=== PATIENT | female | born 1985 | race Caucasian/White ===

== ENCOUNTER 2017-11-22 19:02 | Emergency (ER) | payer MEDICAID, SELFPAY ==
[2017-11-22 19:03] VITALS: BP 129/70; PULSE 96; RESP 17; TEMP 37.6; O2SAT 97; BMI 23.3
--- NOTE | 2017-11-22 19:43 | ED.DCSUM_ITS ---
- ER Visit Summary Date of Service: 11/22/17 Chief Complaint: Abdominal cramping History of Present Illness: The patient is a 31 F G5, currently 16 weeks complicated by placenta previa who presents for abdominal pain and cramping since yesterday evening. Patient began having left lower abdominal cramping radiating into the right lower abdomen yesterday with eventual resolution. This morning it returned and has been intermittent all day. She has associated nausea but no vomiting. Denies diarrhea or constipation but did have one loose stool this morning. No fever, chest pain, shortness of breath. No urinary symptoms. No vaginal bleeding or discharge. Patient has known placenta previa and is scheduled for another ultrasound in December. She does not smoke. No other medical history. She takes vitamins. Physical Examination: Vital signs: afebrile, hemodynamically stable, temperature 99.7, no hypoxia on room air General: well nourished, well developed, in no distress Skin: warm, dry, no rash, no pallor HEENT: normocephalic and atraumatic; PERRL, EOMI, moist mucous membranes Cardiovascular: regular rate and rhythm without murmurs, no peripheral edema, 2 + pulses all distal extremities Respiratory: No increased work of breathing, lungs are clear to auscultation bilaterally, no rales, rhonchi or wheezing Abdominal: Abdomen is soft, mild left lower quadrant tenderness with normoactive bowel sounds, palpable gravid uterus, no guarding or rebound, no masses MSK: Moves all extremities, no deformities, normal strength Neuro: Awake and alert, oriented ?4. No facial droop, sensation and motor function intact and symmetric Test Results: Abnormal Lab Results 11/22/17 11/22/17 11/22/17 19:47 19:47 19:53 WBC 11.4 H RBC 4.04 L Hgb 12.4 Hct 36.1 L MCV 89.4 MCH 30.7 MCHC 34.3 RDW 13.0 RDW Differential 42.3 Plt Count 296 MPV 9.4 Immature Gran % (Auto) 0.000 Neut % (Auto) 66.4 Lymph % (Auto) 28.5 [place] % (Auto) 3.8 Eos % (Auto) 1.1 Baso % (Auto) 0.2 Absolute Neuts (auto) 7.6 Absolute Lymphs (auto) 3.26 Total Counted Not Reportable Sodium 138 Potassium 3.7 Chloride 106 Carbon Dioxide 25.0 Anion Gap 7 BUN 7 Creatinine 0.54 L Estim Creat Clear Calc 142.61 Est GFR (MDRD) Af Amer 170 Est GFR (MDRD) Non-Af 140 BUN/Creatinine Ratio 13.0 Glucose 94 Calcium 8.5 Total Bilirubin 0.20 AST 5 L ALT 10 L Alkaline Phosphatase 53 Total Protein 6.8 Albumin 3.2 Globulin 3.6 Albumin/Globulin Ratio 0.9 Lipase 74 Urine Color Yellow Urine Clarity Sl. Cloudy Urine pH 6.0 Ur Specific [place] 1.025 Urine Protein Negative Urine Glucose (UA) Normal Urine Ketones 5 H Urine Occult Blood 50 H Urine Nitrite Negative Urine Bilirubin Negative Urine Urobilinogen Normal Ur Leukocyte Esterase 100 H Urine RBC 0-5 SEEN Urine WBC 0-5 SEEN Ur Squamous Epith Cells 0-5 SEEN Urine Bacteria 0 SEEN Urine Mucus 1+ Emergency Department Course and Treatment: Patient presents with lower abdominal cramping, with differential including uterine cramping versus non- related complaint. Labs showed no leukocytosis, anemia, electrolyte derangements, hepatic dysfunction, and urine was negative for infection or gross hematuria. Patient had no asymptomatic bacteriuria. Patient has known placenta previa, and she was discussed with monica Reaves for the patient's OB physician. We discussed the possibility of repeating an ultrasound, and the patient had one just [address] Canas states in this situation without vaginal bleeding, the ultrasound will not change management manager. She recommended the patient do symptomatic treatment of her cramps, including Tylenol, warm baths or showers, and even a belly band, as since patient has had multiple pregnancies, she will be more prone to possible uterine cramping earlier in the . Bedside ultrasound was performed with heart tones obtained at 158. movement was noted. Patient was comfortable with discharge home and following up with her OB doctor if she continues to have the cramping. No CT imaging was performed, as the risks to the fetus outweigh any potential benefit in this case, as I have low suspicion for any surgical carmelita process or acute abdominal process requiring urgent intervention. Patient discharged home. Treatment Plan: [] Disposition: [] Impression: Abdominal pain, second trimester This note was generated with Unbound dictation software. It may contain incorrect words, spelling, and punctuation that were not noted in review of the chart prior to signing ED Disposition - Plan for ED Patient: Disposition: Home or Assisted Living Chief Complaint: Abd Pain Instructions: : Your Second Trimester Changes, ED Abdominal Pain Unkn Cause Referrals: Cathy Hooper MD [Primary Care Provider] - Ness Huizar MD [STAFF PHYSICIAN] - 1-2 Days if not improving Additional Instructions: You may use Tylenol, warm baths or showers, and/or a belly band to help with abdominal cramping. This may be related to your . Please follow-up with your OB tomorrow if you continue to have symptoms. If you have any worsening of your condition or any new concerning symptoms, please return immediately to the emergency department for another evaluation.
[2017-11-22 19:58] LABS: Bacteria 0 SEEN /hpf (None Seen)
[2017-11-22 19:59] LABS: Color, Urine Yellow (Yellow); Glucose, Dipstick Normal (Normal); Ketone-Dipstick 5 mg/dl (Negative); Leukocyte Esterase-Dipstick 100 /ul (Negative); Nitrite-Dipstick Negative (Negative); Occult Blood-Urine 50 /ul (Negative); Protein-Dipstick Negative (Negative); Specific Gravity, Urine 1.025 (1.002-1.030); Urine Bilirubin Dipstick Negative (Negative); Urine Clarity Sl. Cloudy (Clear); Urine Urobilinogen Normal (Normal)
[2017-11-22 20:00] LABS: Absolute Lymphocyte Count 3.26 X10^3/ul (0.83-4.51); Absolute Neutrophil Count 7.6 X10^3/uL (2.0-7.7); Basophil# 0.02 X10^3/uL; Basophil% 0.2 % (0-1); Eosinophil# 0.13 X10^3/uL; Eosinophils% 1.1 % (0-5); Hematocrit 36.1 % (37-47); Hemoglobin 12.4 g/dl (12.0-15.0); Lymphocyte # 3.26 X10^3/ul (4.0); Lymphocyte % 28.5 % (19-41); Mean Corp Hgb Conc 34.3 g/gl (32-36); Mean Corpuscular Hgb 30.7 pg (27.0-32.0); Mean Corpuscular Volume 89.4 fL (81-99); Mean Platelet Vol. 9.4 fl (6.2-12.0); Monocyte# 0.43 X10^3/uL; Monocyte% 3.8 % (0-10); Neutrophil # 7.59 X10^3/uL (2.7-7.7); Neutrophil % 66.4 % (47-70); Platelet Count 296 K/mm3 (150-450); RBC Distribution Width SD 42.3 fl (35.1-43.9); Red Blood Count 4.04 M/mm3 (4.2-5.4); White Blood Count 11.4 K/mm3 (4.4-11.0)
[2017-11-22 20:02] LABS: POSITIVE COUNT NO; POSITIVE DIFFERENTIAL NO; POSITIVE MORPHOLOGY NO
[2017-11-22 20:06] LABS: Squamous Epithelial Cells - UA 0-5 SEEN /hpf (5-10)
[2017-11-22 20:07] LABS: Mucous, Urine 1+ /hpf (<or=2+)
[2017-11-22 20:08] LABS: Red Blood Cells-Urine 0-5 SEEN /hpf (0-5); White Blood Cells 0-5 SEEN /hpf (0-5)
[2017-11-22 20:13] LABS: ALB/GLOB Ratio 0.9 RATIO (0.9-2.4); AST(SGOT) 5 U/L (15-37); Alanine Aminotransfer ALT/SGPT 10 U/L (13-56); Albumin, Serum 3.2 g/dL (3.2-5.0); Alkaline Phosphatase 53 U/L (45-117); Anion Gap 7 (5-15); BUN 7 mg/dL (7-18); Calcium,Total 8.5 mg/dL (8.5-10.1); Chloride 106 mmol/L (98-107); Creatinine, Serum 0.54 mg/dL (0.55-1.02); EST Glomerular Filtration Rate 140 mL/min (>60); Est Glom Filt Rate - Afr Amer 170 mL/min (>60); Estimated Creatinine Clearance 142.61 ml/min; Globulin 3.6 g/dL (2.2-4.2); Glucose 94 mg/dL (74-106); Lipase 74 U/L (73-393); Potassium 3.7 mmol/L (3.5-5.1); Protein, Total 6.8 g/dL (6.4-8.2); Sodium Level 138 mmol/L (136-145)
--- NOTE | 2017-11-22 21:28 | ED.DEP ---
ED Disposition - Plan for ED Patient: Disposition: Home or Assisted Living Chief Complaint: Abd Pain Instructions: ED Abdominal Pain Unkn Cause, : Your Second Trimester Changes Referrals: Cathy Hooper MD [Primary Care Provider] - Ness Huizar MD [STAFF PHYSICIAN] - 1-2 Days if not improving Additional Instructions: You may use Tylenol, warm baths or showers, and/or a belly band to help with abdominal cramping. This may be related to your . Please follow-up with your OB tomorrow if you continue to have symptoms. If you have any worsening of your condition or any new concerning symptoms, please return immediately to the emergency department for another evaluation.
[2017-11-22 22:26] VITALS: BP 124/70; PULSE 71; RESP 18; O2SAT 99
== END 2017-11-22 22:27 | disposition home or self-care (01) ==
PROVIDERS: Emergency Provider Emergency Medicine; Family Provider Internal Medicine; PCP Internal Medicine
DX: O26.892 Other specified pregnancy related conditions, second trimester (principal); R10.32 Left lower quadrant pain; O44.02 Complete placenta previa NOS or without hemorrhage, second trimester; Z3A.16 16 weeks gestation of pregnancy
CPT/HCPCS: 80053; 81001; 83690; 85025; 99284; A4216

== ENCOUNTER → 2020-07-06 12:45 | Outpatient (CLI) | payer OTHER, SELFPAY ==
--- NOTE | 2020-07-06 12:50 | CT_ITS ---
STUDY: RIGHT HAND CT SCAN REASON FOR EXAM: Female, 34 years old. CONTUSION OF RIGHT HAND RADIATION DOSAGE (If Supplied By Facility): CTDIvol = ( 24.58 ) mGy, DLP = ( 652.80 ) mGycm. Individualized dose optimization techniques were used for this CT.? TECHNIQUE: Axial multidetector CT scan of the right hand. Coronal and sagittal reformatted images. COMPARISON: None. FINDINGS: No acute fracture, dislocation or osseous destruction. No significant osseous degenerative features. Mild soft tissue swelling (axial image 60 series 2). No hematoma. No solid, cystic or lipomatous lesions. CT/Extremity Upper without Contra IMPRESSION: Right hand acutely intact Mild soft tissue swelling Consider MRI for contusion evaluation Electronically Signed: Joey Flannery DO at 9:02 EDT Tel , Service support ,
== END ==
PROVIDERS: PCP Internal Medicine; Visit Provider Physician Assistant
DX: S60.221D Contusion of right hand, subsequent encounter (principal)
CPT/HCPCS: 73200